=== PATIENT | female | born 1995 | race Two or more races ===

== ENCOUNTER 2023-09-14 00:20 | Emergency (ER) | payer OTHER ==
[~2023-09-14] VITALS: Ht 157.5 cm; Wt 73.0 kg
[2023-09-14 02:06] LABS: HEMATOCRIT 35.7 % (36.0-45.00); HEMOGLOBIN 11.6 g/dL (12.0-15.00); MEAN CELL VOLUME 79.2 fL (80.00-100.00); MEAN CORPUSCULAR HEMOGLOBIN 25.7 pg (27.00-32.0); MEAN CORPUSCULAR HGB CONC 32.5 g/dl (32.0-36.0); PLATELET COUNT 212 K/uL (150-450); RED BLOOD COUNT 4.51 M/uL (4.00-6.00); RED CELL DISTRIBUTION WIDTH 13.1 % (11.5-14.5)
[2023-09-14] MEDS ORDERED: FLONASE ALLERG9.9 ML NASAL (04:03)
[2023-09-14] MEDS ORDERED: ALL DAY ALLERGY10 M3 PO (04:03)
[2023-09-14] MEDS ORDERED: AZITHROMYCIN500 MG PO (04:03)
[2023-09-14] MEDS ORDERED: ACETAMINOPHEN500 M1 PO (04:03)
[2023-09-14] MEDS ORDERED: MUCINEX DM ER1 EAC1 PO (04:03)
== END 2023-09-14 04:19 | disposition home or self-care (01) ==
LOC: ER 00:21
PROVIDERS: General Practice
DX: J06.9 Acute upper respiratory infection, unspecified (principal); Z20.822 Contact with and (suspected) exposure to COVID-19